=== PATIENT | female | born 1950 | race Caucasian/White ===

== ENCOUNTER → 2017-06-05 | Outpatient (CLI) | payer MEDICARE ==
--- NOTE | 2017-06-05 09:52 | CT ---
EXAMINATION TYPE: CT sinus wo con DATE OF EXAM: 06/05/2017 COMPARISON: NONE HISTORY: Cough, drainage and congestion for 5+ years CT DLP: [address] of the paranasal sinuses was performed in the axial and coronal planes. Bone and soft tissue settings are submitted. The paranasal sinuses demonstrate normal aeration and development. The paranasal sinuses are free of mucosal thickening or air fluid level. The osteal meatal units are patent bilaterally. Mild nasal septal deviation from left to right. No bony destructive changes are seen within the field of view. IMPRESSION: Mild nasal septal deviation from left to right. Otherwise unremarkable study.
== END ==
LOC: RADCTMAIN 09:01
PROVIDERS: ATTEND Internal Medicine
DX: J34.2 Deviated nasal septum (principal)
CPT/HCPCS: 70486

== ENCOUNTER 2017-06-16 12:27 | Day surgery (SDC) | payer MEDICARE ==
[2017-06-15 08:36] VITALS: BMI 27.7
[~2017-06-16 12:27] MED LIST: LACTATED RINGERS 1,000 ML IV SCH; LIDOCAINE 1% 20 ML VIAL (10MG/ML) FOR IV START INTRADERMA PRN
[2017-06-16] MEDS ORDERED: LACTATED RINGERS 1,000 ML IV ONE (12:49)
[2017-06-16] MEDS ORDERED: PROPOFOL 10 MG/ML 20 ML VIAL IV ONE (13:58)
--- NOTE | 2017-06-16 14:23 | P.PCN ---
Date of Procedure: 06/16/17 Procedure(s) Performed: Procedure: Total colonoscopy. Preoperative diagnosis: Screening for neoplasia. Postoperative diagnosis: Sigmoid diverticulosis with no evidence of acute diverticulitis, strictures, polyps or cancer. Preparation: HalfLytely prep. Sedation: Was provided by anesthesia. Brief clinical history: The patient is a 66-year-old female who is scheduled for this evaluation for screening for neoplasia age being her risk factor. There is no family history of colon cancer. The patient has no abdominal complaints, bleeding or anemia. She had a prior colonoscopy more than 10 years ago. colonoscopy. Procedure: With the patient on her left lateral decubitus position and after informed consent and adequate sedation, the perianal area was inspected and it did not show any fissures or fistulas. There were no masses felt on digital rectal examination. The Olympus CFQ 160L video colonoscope was then inserted in the rectum in the usual fashion and advanced to the cecum. There were few small diverticular orifices noted scattered in the sigmoid but there was no evidence of acute diverticulitis or strictures. The mucosa appeared healthy. No polyps or tumors were seen. I retroflexed the endoscope in the rectum before the endoscope was withdrawn. The patient tolerated the procedure well. Plan: The patient was reassured. Discussed dietary measures. She will follow- up with you as planned and I recommended repeat exam in 10 years.
[2017-06-16 15:19] VITALS: PULSE 90
[2017-06-16 15:22] VITALS: BP 128/60; RESP 18; TEMP 88
== END 2017-06-16 15:12 | disposition home or self-care (01) ==
LOC: ORWHC2ENDO 12:27
DX: Z12.11 Encounter for screening for malignant neoplasm of colon (principal); K57.30 Diverticulosis of large intestine without perforation or abscess without bleeding; E78.5 Hyperlipidemia, unspecified; E07.9 Disorder of thyroid, unspecified; Z85.3 Personal history of malignant neoplasm of breast; Z90.12 Acquired absence of left breast and nipple; Z79.82 Long term (current) use of aspirin; Z79.890 Hormone replacement therapy; Z79.899 Other long term (current) drug therapy; Z88.0 Allergy status to penicillin
CPT/HCPCS: J2704; G0121

== ENCOUNTER 2021-09-08 00:15 | Inpatient (IN) | payer MEDICARE ==
[2021-09-08] MEDS ORDERED: DILTIAZEM DRIP BOLUS FROM BAG 1 MG SOLN IV ONE ×2 (01:03→02:06)
--- NOTE | 2021-09-08 01:03 | ED ---
Arrhythmia/Palpitations HPI - General Chief Complaint: Arrhythmia/Palpitations Stated Complaint: Palpitations Time Seen by Provider: 09/08/21 00:54 Source: patient Mode of arrival: wheelchair Limitations: no limitations - History of Present Illness Initial Comments: This patient is a 70-year-old woman who presents to have evaluation of racing heart. Patient states she had been sleeping tonight and was awakened by feeling like her chest was pounding. She was not having any other symptoms. No dyspnea, diaphoresis, nausea or vomiting. She states she has previously felt like her heart would race but it would only last for a brief period of time and go away. She did just recently finished wearing a Holter monitor for number weeks to see if they can capture an event but she has not been notified of the result yet. MD Complaint: rapid heart beat -: minutes(s) Context: occurred during rest Arrhythmia History: other - Related Data Home Medications Medication Instructions Recorded Confirmed Levothyroxine Sodium [Synthroid] 112 mcg PO [id number] 06/15/17 09/08/21 Magnesium Oxide [Johnson] 500 mg PO W/SUPPER 06/15/17 09/08/21 Calcium Carbonate [Calcium] 600 mg PO W/SUPPER 09/08/21 09/08/21 Cyanocobalamin (Vitamin B-12) 1,000 mcg PO W/SUPPER 09/08/21 09/08/21 [Vitamin B-12] Ferrous Sulfate [Iron (65 MG 325 mg PO W/SUPPER 09/08/21 09/08/21 Elemental)] Loratadine [Claritin] 10 mg PO W/SUPPER 09/08/21 09/08/21 Multivitamins, Thera [Multivitamin 1 tab PO W/SUPPER 09/08/21 09/08/21 (formulary)] Pyridoxine HCl (Vitamin B6) 100 mg PO W/SUPPER 09/08/21 09/08/21 [Vitamin B-6] Turmeric Root Extract [Turmeric] 500 mg PO W/SUPPER 09/08/21 09/08/21 Previous Rx's Medication Instructions Recorded Apixaban [Eliquis] 5 mg PO BID 30 Days #60 tab 09/09/21 Propafenone [Rythmol] 150 mg PO TID #90 tab 09/09/21 Allergies Allergy/AdvReac Type Severity Reaction Status Date / Time Penicillins Allergy Anaphylaxis Verified 09/08/21 12:04 & Hives Review of Systems ROS Statement: Those systems with pertinent positive or pertinent negative responses have been documented in the HPI. ROS Other: All systems not noted in ROS Statement are negative. Constitutional: Denies: fever, chills, weakness Eyes: Denies: vision change Respiratory: Denies: cough, dyspnea Cardiovascular: Reports: palpitations. Denies: chest pain, orthopnea, edema, syncope Gastrointestinal: Denies: abdominal pain, nausea, vomiting, diarrhea Skin: Denies: rash Neurological: Denies: headache, weakness, numbness Psychiatric: Reports: anxiety Past Medical History Past Medical History: Cancer, Hyperlipidemia, Thyroid Disorder Additional Past Medical History / Comment(s): irregular heartbeat, arthritis, anti-phospholipid syndromem, hx breast cancer History of Any Multi-Drug Resistant Organisms: None Reported Past Surgical History: Breast Surgery, Cholecystectomy, Hysterectomy, Orthopedic Surgery, Tonsillectomy Additional Past Surgical History / Comment(s): left mastectomy, kandis knee replacements, RK surgery Past Anesthesia/Blood Transfusion Reactions: Postoperative Nausea & Vomiting (PONV) Past Psychological History: No Psychological Hx Reported Past Alcohol Use History: Occasional Past Drug Use History: None Reported - Past Family History Mother Family Medical History: No Reported History General Exam Limitations: no limitations General appearance: alert, in no apparent distress Head exam: Present: atraumatic, normocephalic Eye exam: Present: normal appearance. Absent: scleral icterus, conjunctival injection Neck exam: Present: normal inspection Respiratory exam: Present: normal lung sounds bilaterally. Absent: respiratory distress, wheezes, rales, rhonchi, stridor Cardiovascular Exam: Present: tachycardia, irregular rhythm, normal heart sounds. Absent: systolic murmur, diastolic murmur, rubs, gallop GI/Abdominal exam: Present: soft. Absent: distended, tenderness, guarding, rebound, rigid, mass Extremities exam: Present: normal inspection, normal capillary refill. Absent: pedal edema, calf tenderness Back exam: Present: normal inspection. Absent: CVA tenderness (R), CVA tend erness (L) Neurological exam: Present: alert Skin exam: Present: warm, dry, intact, normal color. 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 ] Respiratory 12 Rate Blood Pressure Blood Pressure 130/78 [Right Arm Sitting] O2 Sat by Pulse 98 Oximetry EKG Findings - EKG Results: EKG: interpreted by KENNETH, normal axis EKG shows: atrial fibrillation (Rate 140 bpm) Medical Decision Making - Lab Data Result diagrams: 09/09/21 07:00 09/09/21 07:00 Lab Results 09/08/21 09/08/21 09/08/21 Range/Units 00:59 00:59 00:59 WBC (3.8-10.6) k/uL RBC (3.80-5.40) m/uL Hgb (11.4-16.0) gm/dL Hct (34.0-46.0) % MCV (80.0-100.0) fL MCH (25.0-35.0) pg MCHC (31.0-37.0) g/dL RDW (11.5-15.5) % Plt Count (150-450) k/uL MPV Neutrophils % % Lymphocytes % % Monocytes % % Eosinophils % % Basophils % % Neutrophils # (1.3-7.7) k/uL Lymphocytes # (1.0-4.8) k/uL Monocytes # (0-1.0) k/uL Eosinophils # (0-0.7) k/uL Basophils # (0-0.2) k/uL PT 9.9 (9.0-12.0) sec INR 0.9 (<1.2) APTT 29.8 (22.0-30.0) sec Sodium 137 (137-145) mmol/L Potassium 4.4 (3.5-5.1) mmol/L Chloride 104 (98-107) mmol/L Carbon Dioxide 23 (22-30) mmol/L Anion Gap 10 mmol/L BUN 19 H (7-17) mg/dL Creatinine 0.80 (0.52-1.04) mg/dL Est GFR (CKD-EPI)AfAm 87 (>60 ml/min/1.73 sqM) Est GFR (CKD-EPI)NonAf 75 (>60 ml/min/1.73 sqM) Glucose 120 H (74-99) mg/dL Calcium 9.7 (8.4-10.2) mg/dL Magnesium 2.0 (1.6-2.3) mg/dL Total Bilirubin 1.0 (0.2-1.3) mg/dL AST 65 H (14-36) U/L ALT 32 (4-34) U/L Alkaline Phosphatase 55 (38-126) U/L Troponin I 0.030 (0.000-0.034) ng/mL Total Protein 7.4 (6.3-8.2) g/dL Albumin 4.7 (3.5-5.0) g/dL 09/08/21 Range/Units 00:59 WBC 6.3 (3.8-10.6) k/uL RBC 5.05 (3.80-5.40) m/uL Hgb 15.2 (11.4-16.0) gm/dL Hct 46.8 H (34.0-46.0) % MCV 92.7 (80.0-100.0) fL MCH 30.1 (25.0-35.0) pg MCHC 32.5 (31.0-37.0) g/dL RDW 13.1 (11.5-15.5) % Plt Count 238 (150-450) k/uL MPV 8.3 Neutrophils % 60 % Lymphocytes % 28 % Monocytes % 6 % Eosinophils % 4 % Basophils % 1 % Neutrophils # 3.8 (1.3-7.7) k/uL Lymphocytes # 1.7 (1.0-4.8) k/uL Monocytes # 0.4 (0-1.0) k/uL Eosinophils # 0.2 (0-0.7) k/uL Basophils # 0.0 (0-0.2) k/uL PT (9.0-12.0) sec INR (<1.2) APTT (22.0-30.0) sec Sodium (137-145) mmol/L Potassium (3.5-5.1) mmol/L Chloride (98-107) mmol/L Carbon Dioxide (22-30) mmol/L Anion Gap mmol/L BUN (7-17) mg/dL Creatinine (0.52-1.04) mg/dL Est GFR (CKD-EPI)AfAm (>60 ml/min/1.73 sqM) Est GFR (CKD-EPI)NonAf (>60 ml/min/1.73 sqM) Glucose (74-99) mg/dL Calcium (8.4-10.2) mg/dL Magnesium (1.6-2.3) mg/dL Total Bilirubin (0.2-1.3) mg/dL AST (14-36) U/L ALT (4-34) U/L Alkaline Phosphatase (38-126) U/L Troponin I (0.000-0.034) ng/mL Total Protein (6.3-8.2) g/dL Albumin (3.5-5.0) g/dL Critical Care Time Critical Care Time: Yes (30 minutes) Disposition Clinical Impression: Atrial fibrillation Disposition: ADMITTED IP TO THIS HOSP Condition: Fair Is patient prescribed a controlled substance at d/c from ED?: No
[2021-09-08] MEDS ORDERED: ENOXAPARIN 80 MG/0.8 ML SYRINGE SQ ONE (01:15)
[2021-09-08] MEDS: DILTIAZEM 125 MG in SODIUM CHLORIDE 0.9% 100 ML IV SCH (01:18)
[2021-09-08 01:50] LABS: Basophils % (A) 1 %; Eosinophils # (A) 0.2 k/uL (0-0.7); Eosinophils % (A) 4 %; HCT 46.8 % (34.0-46.0); HGB 15.2 gm/dL (11.4-16.0); Lymphocytes # (A) 1.7 k/uL (1.0-4.8); Lymphocytes % (A) 28 %; MCH 30.1 pg (25.0-35.0); MCHC 32.5 g/dL (31.0-37.0); MCV 92.7 fL (80.0-100.0); Mean Platelet Volume 8.3; Monocytes # (A) 0.4 k/uL (0-1.0); Monocytes % (A) 6 %; Neutrophils # (A) 3.8 k/uL (1.3-7.7); Neutrophils % (A) 60 %; Platelet Count 238 k/uL (150-450); RBC 5.05 m/uL (3.80-5.40); RDW 13.1 % (11.5-15.5); WBC 6.3 k/uL (3.8-10.6)
[2021-09-08 01:53] LABS: INR 0.9 (<1.2); Partial Thromboplastin Time 29.8 sec (22.0-30.0); Prothrombin Time 9.9 sec (9.0-12.0)
--- NOTE | 2021-09-08 01:53 | XR ---
EXAMINATION TYPE: XR chest 2V DATE OF EXAM: 09/08/2021 COMPARISON: NONE HISTORY: Palpitations TECHNIQUE: 2 views FINDINGS: Heart and mediastinum are normal. Lungs are clear. Diaphragm is normal. Bony thorax appears normal. IMPRESSION: Normal chest.
[2021-09-08 01:57] LABS: Calcium 9.7 mg/dL (8.4-10.2)
[2021-09-08 02:06] LABS: Albumin 4.7 g/dL (3.5-5.0); Potassium 4.4 mmol/L (3.5-5.1); Total Protein 7.4 g/dL (6.3-8.2)
[2021-09-08] MEDS ORDERED: NITROGLYCERIN SL TABS 0.4 MG TAB SUBLINGUAL PRN (03:11)
[2021-09-08] MEDS ORDERED: ENOXAPARIN 80 MG/0.8 ML SYRINGE SQ SCH (03:15)
--- NOTE | 2021-09-08 08:15 | P.HPIM ---
History of Present Illness H&P Date: 09/08/21 Alice Angelo, is a 70-year-old female who presented to [facility] emergency room with a chief complaint of palpitation and feeling her heart racing, patient stated that over the last 2 years she had 3 similar episodes each lasting about 24 hours, with several month in between episodes, she was seen by Dr. Cotter and underwent a stress test and a 30 day event monitor but was not able to document these episodes previously. She was evaluated in the emergency room vital examination on presentation revealed a temperature of 98.1 pulse 141 respiration 16 blood pressure 116/80 pulse ox 99% on room air Laboratory data revealed a white blood count of 6.3 hemoglobin 15.2 platelet count 238 sodium 137 potassium 4.4 chloride 104 CO2 23 BUN 19 creatinine 0.8 troponin level 0.03 Testing in the emergency room revealed EKG done in the emergency room revealed evidence of atrial fibrillation with rapid ventricular response, chest x-ray done in the emergency room revealed normal chest. Patient was started on IV Cardizem drip and subcu Lovenox in the emergency room, she was admitted to medical floor for further evaluation and treatment. Past medical history significant for history of hypothyroidism maintained on Synthroid, history of osteoarthritis, history of breast cancer, and previous history of palpitation in the past as above. On review of systems patient is alert and oriented 3 in no apparent distress, there is no fever or chills no headache or dizziness no chest pain no shortness of breath no cough no nausea or vomiting no abdominal pain no diarrhea no blood in the stools no burning with urination no frequency or urgency and no hematuria, there is no weakness or numbness in any of the extremities there is no change in vision speech or gait. Past Medical History Past Medical History: Cancer, Hyperlipidemia, Thyroid Disorder Additional Past Medical History / Comment(s): irregular heartbeat, arthritis, anti-phospholipid syndromem, hx breast cancer History of Any Multi-Drug Resistant Organisms: None Reported Past Surgical History: Breast Surgery, Cholecystectomy, Hysterectomy, Orthopedic Surgery, Tonsillectomy Additional Past Surgical History / Comment(s): left mastectomy, kandis knee replacements, RK surgery Past Anesthesia/Blood Transfusion Reactions: Postoperative Nausea & Vomiting (PONV) Past Psychological History: No Psychological Hx Reported Smoking Status: Never smoker Past Alcohol Use History: Occasional Past Drug Use History: None Reported - Past Family History Mother Family Medical History: No Reported History Medications and Allergies Home Medications Medication Instructions Recorded Confirmed Type Aspirin 325 mg PO DAILY 06/15/17 06/15/17 History Cholecalciferol [Vitamin D3] 5,000 unit PO DAILY 06/15/17 06/15/17 History Latanoprost Ophth [Xalatan 0.005%] 1 drops BOTH EYES HS 06/15/17 06/15/17 History Levothyroxine Sodium [Synthroid] 112 mcg PO DAILY 06/15/17 06/15/17 History Magnesium Oxide [Johnson] 500 mg PO DAILY 06/15/17 06/15/17 History Topiramate [Topamax] 100 mg PO HS 06/15/17 06/15/17 History Triple Upton 3-6-9 2 tab PO DAILY 06/15/17 06/15/17 History Allergies Allergy/AdvReac Type Severity Reaction Status Date / Time Penicillins Allergy Itching/hiv Verified 06/15/17 08:26 es Physical Exam Vitals: Vital Signs Temp Pulse Pulse Resp BP BP Pulse Ox 09/08/21 05:12 98 F 106 H 12 130/78 98 09/08/21 03:01 115 H 14 206/80 99 09/08/21 01:28 114 H 122 H 18 116/80 99 09/08/21 00:26 98.1 F 141 H 16 9 L Intake and Output 09/07/21 09/08/21 09/08/21 22:59 06:59 14:59 Other: # Voids 1 Weight 81.647 kg In general patient is alert and oriented x 3 in no distress HEENT head normocephalic and atraumatic Neck is supple no JVD no goiter no lymphadenopathy no carotid bruit Chest examination is clear to auscultation no crackles no wheezing Cardiac exam reveals irregular heart sounds S1 and S2 no gallops no murmurs Abdomen is soft nontender no organomegaly with normal bowel sounds Extremity exam reveals no edema no cyanosis or clubbing Neurological examination reveals no gross focal deficits Results CBC & Chem 7: 09/08/21 00:59 09/08/21 00:59 Labs: Abnormal Lab Results - Last 24 Hours (Table) 09/08/21 09/08/21 Range/Units 00:59 00:59 Hct 46.8 H (34.0-46.0) % BUN 19 H (7-17) mg/dL Glucose 120 H (74-99) mg/dL AST 65 H (14-36) U/L Thrombosis Risk Factor Assmnt - Choose All That Apply Any of the Below Risk Factors Present?: Yes Each Factor Represents 1 point: Obesity (BMI >25) Each Risk Factor Represents 2 Points: Age 61-74 years Other congenital or acquired thrombophilia - If yes, enter type in comment: Yes (anti-phospholipid syndrome) Thrombosis Risk Factor Assessment Total Risk Factor Score: 3 Thrombosis Risk Factor Assessment Level: Moderate Risk Assessment and Plan Plan: Atrial fibrillation with rapid ventricular response Underlying history of hypothyroidism, maintained on Synthroid 112 g daily Will check TSH Underlying history of osteoarthritis Previous history of breast cancer At this time patient is stable she is admitted to telemetry floor she is maintained on IV Cardizem and subcu Lovenox Echocardiogram ordered cardiology consultation requested Home medications reviewed For GI prophylaxis Will add protonix Will follow closely
[2021-09-08] MEDS: PROPAFENONE 150 MG TAB PO SCH ×3 (10:21→21:27)
[2021-09-08] MEDS: LEVOTHYROXINE 112 MCG TAB PO SCH (10:21)
--- NOTE | 2021-09-08 14:00 | CONS ---
CONSULTATION CHIEF COMPLAINT: Palpitations. HISTORY OF PRESENT ILLNESS: Alice is a 70-year-old lady with no significant past medical history who presented to hospital with sustained palpitations. She was found to be in atrial fibrillation with rapid ventricular rate and was started on intravenous Cardizem along with Lovenox and is admitted to the floor. The patient has had 2 prior episodes where she had sustained palpitations that were 6 months apart and this one is about 3 months after her previous episode. Following the second episode of sustained palpitations, she was evaluated in our office and had seen Dr. Cotter. She had an event monitor whose results are pending at this time. She had a stress test that she was told was negative and was told to undergo an echocardiogram down the road. At the time of my evaluation this morning, she is symptom-free. She is on intravenous Cardizem, still remains in atrial fibrillation with controlled ventricular rate. The patient's physical exam did not reveal any heart murmurs. I am going to start the patient on Rythmol 150 t.i.d., and if she does not convert to sinus rhythm, I am going to have her undergo BLAIR cardioversion in the morning. We can start her on Xarelto or Eliquis depending upon what she is covered for. PAST MEDICAL HISTORY: Negative for hypertension, diabetes or dyslipidemia. MEDICATIONS: Medications at home include: Synthroid, Topamax, and vitamin D. ALLERGIES: PENICILLIN. FAMILY HISTORY: Negative for premature coronary artery disease. SOCIAL HISTORY: Negative for smoking, EtOH abuse or drug abuse. REVIEW OF SYSTEMS: HEENT is unremarkable. Cardiac as described above. Respiratory as described above. GI negative. GENITOURINARY negative. ALLERGY/IMMUNOLOGY: None. Skin negative. Musculoskeletal significant for arthritis. Psychosocial negative. Derm negative. Constitutional negative. ONCOLOGICAL negative. LOG DECK TENDER negative. EXAM: Comfortable at rest. Vital signs are stable. There is no jugular venous distention. Carotid upstroke is normal. There is no bruit. Chest exam reveals good air entry bilaterally. Heart exam reveals first and second heart sounds. No gallop. No murmur. No rub. Abdomen is soft, nontender. Examination of extremities did not reveal any edema. Peripheral pulses are felt. LAB: Showed that the tropes are negative. TSH is normal at 2.8. Potassium is 4.4. Hemoglobin is 15.2. ASSESSMENT: Paroxysmal atrial fibrillation. PLAN: The patient will be started on Rythmol. Continue the intravenous Cardizem. Obtain a 2D echo. If she does not convert to sinus rhythm, consider BLAIR/cardioversion. GUILLAUME / DONG: [id number] /
[2021-09-08] MEDS: ENOXAPARIN 80 MG/0.8 ML SYRINGE SQ SCH (15:18)
[2021-09-08] MEDS ORDERED: PYRIDOXINE 50 MG TAB PO SCH (17:30)
[2021-09-08] MEDS ORDERED: MULTIVITAMINS, THERA 1 EACH TAB PO SCH (17:30)
[2021-09-08] MEDS ORDERED: MAGNESIUM OXIDE 400 MG TAB PO SCH (17:30)
[2021-09-08] MEDS ORDERED: LORATADINE 10 MG TAB PO SCH (17:30)
[2021-09-08] MEDS ORDERED: CALCIUM CARBONATE 500 MG CHEWABLE PO SCH (17:30)
[2021-09-08] MEDS ORDERED: ASPIRIN 325 MG TAB PO SCH (17:30)
[2021-09-08] MEDS ORDERED: FERROUS SULFATE 325 MG TAB PO SCH (17:30)
[2021-09-08] MEDS ORDERED: NON FORMULARY DRUG (Turmeric Root Extract [Turmeric] 500 MG Tablet) PO SCH (17:30)
[2021-09-08] MEDS ORDERED: CYANOCOBALAMIN 500 MCG TAB PO SCH (17:30)
[2021-09-08 23:05] VITALS: RESP 18
[2021-09-09] MEDS: ENOXAPARIN 80 MG/0.8 ML SYRINGE SQ SCH (00:14)
[2021-09-09] MEDS: DILTIAZEM 125 MG in SODIUM CHLORIDE 0.9% 100 ML IV SCH (02:28)
[2021-09-09] MEDS: LEVOTHYROXINE 112 MCG TAB PO SCH (07:07)
[2021-09-09 07:46] LABS: Basophils % (A) 0 %; Eosinophils # (A) 0.2 k/uL (0-0.7); Eosinophils % (A) 3 %; HCT 41.4 % (34.0-46.0); HGB 13.4 gm/dL (11.4-16.0); Lymphocytes # (A) 1.6 k/uL (1.0-4.8); Lymphocytes % (A) 25 %; MCH 30.4 pg (25.0-35.0); MCHC 32.4 g/dL (31.0-37.0); MCV 93.8 fL (80.0-100.0); Mean Platelet Volume 8.2; Monocytes # (A) 0.3 k/uL (0-1.0); Monocytes % (A) 5 %; Neutrophils # (A) 3.9 k/uL (1.3-7.7); Neutrophils % (A) 64 %; Platelet Count 223 k/uL (150-450); RBC 4.41 m/uL (3.80-5.40); RDW 13.2 % (11.5-15.5); WBC 6.2 k/uL (3.8-10.6)
[2021-09-09 08:10] LABS: ALT 22 U/L (4-34); AST 26 U/L (14-36); African American GFR (CKD) 78 (>60 ml/min/1.73 sqM); Albumin 3.9 g/dL (3.5-5.0); Alkaline Phosphatase 54 U/L (38-126); Blood Urea Nitrogen 15 mg/dL (7-17); Calcium 9.1 mg/dL (8.4-10.2); Carbon Dioxide 28 mmol/L (22-30); Chloride 107 mmol/L (98-107); Glucose 112 mg/dL (74-99); Non-African American GFR(CKD) 68 (>60 ml/min/1.73 sqM); Potassium 4.5 mmol/L (3.5-5.1); Total Bilirubin 0.4 mg/dL (0.2-1.3); Total Protein 6.1 g/dL (6.3-8.2)
[2021-09-09 08:23] LABS: Anion Gap 3 mmol/L; Sodium 138 mmol/L (137-145)
[2021-09-09] MEDS ORDERED: ASPIRIN 325 MG TAB PO SCH (09:00)
[2021-09-09] MEDS: PROPAFENONE 150 MG TAB PO SCH (09:52)
--- NOTE | 2021-09-09 10:18 | P.PN ---
Subjective This is a 70 year old female with a past medical history of hypothyroidism, anti-phospholipid syndrome, breast cancer s/p left mastectomy. She follows with Dr. Cotter. We are following the patient for new onset atrial fibrillation. Patient seen and examined at bedside, feeling well. No complaints. She denies any shortness of breath, palpitations, chest pain, lightheadedness or dizziness. Patient converted to sinus mechanism. EKG this morning revealed sinus rhythm heart rate 64. Meds: She is currently maintained on Lovenox 80SQ BID, aspirin 325 mg daily, Rhythmol 150mg TID GENERAL: Well-appearing, well-nourished and in no acute distress. NECK: Supple without JVD or thyromegaly. LUNGS: Breath sounds clear to auscultation bilaterally. Respiration equal and unlabored. No wheezes, rales or rhonchi. HEART: Regular rate and rhythm without murmurs, rubs or gallops. S1 and S2 heard. EXTREMITIES: Normal range of motion, no edema. No clubbing or cyanosis. Peripheral pulses intact. ASSESSMENT New onset paroxysmal atrial fibrillation [id number] score 2 History of hypothyroidism History of antiphospholipid lipid syndrome History of Breast cancer status post left mastectomy PLAN From a cardiology perspective, patient is stable to be discharged today 2D echocardiogram completed, will review Eliquis and Xarelto checked for coverage, Eliquis is the more affordable option for the patient and patient will receive a free month Continue Rhythmol 150mg TID Patient to follow up outpatient with Dr. Cotter Nurse Practitioner note has been reviewed, I agree with a documented findings and plan of care. Patient was seen and examined. Objective - Vital Signs Vital signs: Vital Signs Temp 98.4 F 09/09/21 09:35 Pulse 75 09/09/21 09:35 Resp 18 09/09/21 09:37 BP 131/78 09/09/21 09:35 Pulse Ox 96 09/09/21 09:35 FiO2 Intake & Output 09/08/21 09/09/21 09/09/21 18:59 06:59 18:59 Intake Total 1999 240 Balance 1999 240 Intake: Oral 1999 240 Other: Voiding Method Toilet Toilet Toilet # Voids 5 1 - Labs CBC & Chem 7: 09/09/21 07:00 09/09/21 07:00 Labs: Abnormal Lab Results - Last 24 Hours (Table) 09/09/21 Range/Units 07:00 Glucose 112 H (74-99) mg/dL Total Protein 6.1 L (6.3-8.2) g/dL
[2021-09-09 10:45] LABS: Chol/HDL Ratio 2.47 Ratio; LDL Cholesterol,Calculated 79.7 mg/dL (0.0-131.0)
[2021-09-09 11:51] VITALS: BP 127/76; PULSE 69; TEMP 97.8
--- NOTE | 2021-09-09 14:28 | P.DS ---
Providers Date of admission: 09/08/21 03:11 Expected date of discharge: 09/09/21 Attending physician: Yenni Bains Consults: 09/08/21 03:11 Consult Physician Routine Consulting Provider: Kirby Parsons Consult Reason/Comments: Atrial fibrillation with rapid ventricular rate, new onset Do you want consulting provider notified?: Yes Primary care physician: Yenni Bains [facility] Course: Diagnosis on discharge: Atrial fibrillation with rapid ventricular response, new diagnosis for A Fib Underlying history of hypothyroidism, maintained on Synthroid 112 g daily Will check TSH Underlying history of osteoarthritis Previous history of breast cancer Hospital course: Alice Angelo, is a 70-year-old female who presented to [facility] emergency room with a chief complaint of palpitation and feeling her heart racing, patient stated that over the last 2 years she had 3 similar episodes each lasting about 24 hours, with several month in between episodes, she was seen by Dr. Cotter and underwent a stress test and a 30 day event monitor but was not able to document these episodes previously. She was evaluated in the emergency room vital examination on presentation revealed a temperature of 98.1 pulse 141 respiration 16 blood pressure 116/80 pulse ox 99% on room air Laboratory data revealed a white blood count of 6.3 hemoglobin 15.2 platelet count 238 sodium 137 potassium 4.4 chloride 104 CO2 23 BUN 19 creatinine 0.8 troponin level 0.03 Testing in the emergency room revealed EKG done in the emergency room revealed evidence of atrial fibrillation with rapid ventricular response, chest x-ray done in the emergency room revealed normal chest. Patient was started on IV Cardizem drip and subcu Lovenox in the emergency room, she was admitted to medical floor for further evaluation and treatment. Past medical history significant for history of hypothyroidism maintained on Synthroid, history of osteoarthritis, history of breast cancer, and previous history of palpitation in the past as above. On review of systems patient is alert and oriented 3 in no apparent distress, there is no fever or chills no headache or dizziness no chest pain no shortness of breath no cough no nausea or vomiting no abdominal pain no diarrhea no blood in the stools no burning with urination no frequency or urgency and no hematuria, there is no weakness or numbness in any of the extremities there is no change in vision speech or gait. On 09/09/2021 patient was seen and examined on the telemetry floor, she is alert and oriented 3 in no apparent distress, heart rhythm has converted to normal sinus rhythm today, patient was seen by cardiology and was started on Rythmol and Eliquis, echocardiogram was done, results are still pending, patient was cleared for discharge by cardiology she will follow-up with her integration lead Dr. Cotter in the next 1-2 weeks Patient Condition at Discharge: Fair Plan - Discharge Summary New Discharge Prescriptions: New Apixaban [Eliquis] 5 mg PO BID 30 Days #60 tab Propafenone [Rythmol] 150 mg PO TID #90 tab Continue Magnesium Oxide [Johnson] 500 mg PO W/SUPPER Levothyroxine Sodium [Synthroid] 112 mcg PO AC-BRKFST Pyridoxine HCl (Vitamin B6) [Vitamin B-6] 100 mg PO W/SUPPER Cyanocobalamin (Vitamin B-12) [Vitamin B-12] 1,000 mcg PO W/SUPPER Multivitamins, Thera [Multivitamin (formulary)] 1 tab PO W/SUPPER Loratadine [Claritin] 10 mg PO W/SUPPER Ferrous Sulfate [Iron (65 MG Elemental)] 325 mg PO W/SUPPER Turmeric Root Extract [Turmeric] 500 mg PO W/SUPPER Calcium Carbonate [Calcium] 600 mg PO W/SUPPER Discontinued Aspirin 325 mg PO W/SUPPER Discharge Medication List Levothyroxine Sodium [Synthroid] 112 mcg PO AC-BRKFST 06/15/17 [History] Magnesium Oxide [Johnson] 500 mg PO W/SUPPER 06/15/17 [History] Calcium Carbonate [Calcium] 600 mg PO W/SUPPER 09/08/21 [History] Cyanocobalamin (Vitamin B-12) [Vitamin B-12] 1,000 mcg PO W/SUPPER 09/08/21 [History] Ferrous Sulfate [Iron (65 MG Elemental)] 325 mg PO W/SUPPER 09/08/21 [History] Loratadine [Claritin] 10 mg PO W/SUPPER 09/08/21 [History] Multivitamins, Thera [Multivitamin (formulary)] 1 tab PO W/SUPPER 09/08/21 [History] Pyridoxine HCl (Vitamin B6) [Vitamin B-6] 100 mg PO W/SUPPER 09/08/21 [History] Turmeric Root Extract [Turmeric] 500 mg PO W/SUPPER 09/08/21 [History] Apixaban [Eliquis] 5 mg PO BID 30 Days #60 tab 09/09/21 [Rx] Propafenone [Rythmol] 150 mg PO TID #90 tab 09/09/21 [Rx] Follow up Appointment(s)/Referral(s): Manny Cotter MD [Family Provider] - 1 Week Yenni Bains MD [Primary Care Provider] - 1-2 days Patient Instructions/Handouts: Apixaban (By mouth), A-fib (Atrial Fibrillation) (GEN) Activity/Diet/Wound Care/Special Instructions: Eliquis prescription info: First month of Eliquis will be free at the pharmacy After co pay is $90.50. Xarelto was checked as well and was around $170/month. Further recommendations and changes can be discussed in the office with Dr. Cotter.
[2021-09-09] MEDS ORDERED: APIXABAN 5 MG TAB PO SCH (21:00)
--- NOTE | 2021-09-10 09:36 | CA ---
Transthoracic Echo Report Name: Alice Angelo Age: 70 Gender: F : 1950 Exam Date: 09/09/2021 07:53 Exam Location: [facility] Ht (in): 65 Wt (lb): 180 Ordering Physician: Yenni Bains MD Attending/Referring Phys: [employer] Room Attendant Geno Mcfadden RDCS Procedure CPT: Indications: new onset a fib Cardiac Hx: Technical Quality: Fair Contrast 1: Total Dose (mL): Contrast 2: Total Dose (mL): MEASUREMENTS (Male / Female) Normal Values 2D ECHO LV Diastolic Diameter PLAX 4.0 cm 4.2 - 5.9 / 3.9 - 5.3 cm LV Systolic Diameter PLAX 3.1 cm IVS Diastolic Thickness 1.1 cm 0.6 - 1.0 / 0.6 - 0.9 cm LVPW Diastolic Thickness 1.3 cm 0.6 - 1.0 / 0.6 - 0.9 cm LV Relative Wall Thickness 0.6 RV Internal Dim ED PLAX 3.8 cm LA Systolic Diameter LX 3.7 cm 3.0 - 4.0 / 2.7 - 3.8 cm LA Volume 62.6 cm??? 18 - 58 / 22 - 52 cm??? M-MODE Aortic Root Diameter MM 2.4 cm LA Systolic Diameter MM 4.3 cm LA Ao Ratio MM 1.8 MV E Point Septal Separation 0.5 cm AV Cusp Separation MM 2.0 cm DOPPLER MV Area PHT 2.1 cm??? Mitral E Point Velocity 40.0 cm/s Mitral A Point Velocity 48.3 cm/s Mitral E to A Ratio 0.8 MV Deceleration Time 369.9 ms MV E' Velocity 5.8 cm/s Mitral E to MV E' Ratio 6.9 TR Peak Velocity 198.6 cm/s TR Peak Gradient 15.8 mmHg Right Ventricular Systolic Press 20.8 mmHg FINDINGS Left Ventricle Mildly increased left ventricular wall thickness. Normal left ventricular systolic function with no obvious regional wall motion abnormalities. Left ventricular ejection fraction is estimated at 55-60 %. Right Ventricle Mild right ventricular dilatation. Right ventricular systolic pressure within normal limits. Right Atrium Normal right atrial size. Left Atrium Mildly increased left atrial volume. Mildly increased left atrial area. Mitral Valve No mitral stenosis, regurgitation or prolapse. Aortic Valve No aortic valve stenosis or regurgitation. Tricuspid Valve Structurally normal tricuspid valve. Mild tricuspid regurgitation. Pulmonic Valve Structurally normal pulmonic valve. Trace pulmonic regurgitation. Pericardium No pericardial effusion. Aorta Normal size aortic root and proximal ascending aorta. CONCLUSIONS Normal LV size and systolic function mild right ventricular prominence. No pericardial effusion. No significant abnormality on Doppler exam Previewed by: Dr. Phil Tenorio MD (Electronically Signed) Final Date: 10 September 2021 09:35
== END 2021-09-09 14:54 | disposition home or self-care (01) | DRG 309 ==
LOC: EC 00:15 → 3SCARD 03:11
PROVIDERS: ADMIT Internal Medicine; ATTEND Internal Medicine
DX: I48.0 Paroxysmal atrial fibrillation (principal); D68.61 Antiphospholipid syndrome; E03.9 Hypothyroidism, unspecified; E78.5 Hyperlipidemia, unspecified; E66.9 Obesity, unspecified; F41.9 Anxiety disorder, unspecified; M19.90 Unspecified osteoarthritis, unspecified site; Z68.30 Body mass index [BMI] 30.0-30.9, adult; Z96.653 Presence of artificial knee joint, bilateral; Z79.890 Hormone replacement therapy; Z88.0 Allergy status to penicillin; Z79.899 Other long term (current) drug therapy; Z85.3 Personal history of malignant neoplasm of breast; Z90.12 Acquired absence of left breast and nipple
CPT/HCPCS: 36415; 71046; 80053; 80061; 83735; 84443; 84484; 85025; 85610; 85730; 93005; 93306; 96365; 96366; 96372; 99291

== ENCOUNTER → 2022-09-24 | Outpatient (CLI) | payer MEDICARE ==
--- NOTE | 2022-09-24 08:28 | MM ---
Reason for Exam: Additional evaluation requested from prior study. Last screening mammogram was performed 12 month(s) ago. Patient History: Menarche at age 13. First Full-Term at age 22. Left ovary removed at age 53. Right ovary removed at age 53. Hysterectomy at age 53. Postmenopausal. Patient has history of breast feeding. Breast cancer, left, age 48. Breast cancer, left, age 55. 2002, Mastectomy on the Left side. Tissue Density: Right: There are scattered fibroglandular densities. Findings: Analyzed By CAD. Benign vascular calcifications redemonstrated upper outer quadrant. No significant change from prior exams. Overall Assessment: Negative, BI-RAD 1 Management: Screening Mammogram of the right breast in 1 year. . Results were given to the patient verbally at the time of exam. Patient should continue monthly self-breast exams. A clinical breast exam by your physician is recommended on an annual basis. This exam should not preclude additional follow-up of suspicious palpable abnormalities. Electronically signed and approved by: Marina Campbell M.D. Radiologist
== END | disposition home or self-care (01) ==
LOC: RADMAMWWP 07:41
PROVIDERS: ATTEND Internal Medicine Hematology & Oncology
DX: C50.912 Malignant neoplasm of unspecified site of left female breast (principal); Z78.0 Asymptomatic menopausal state
CPT/HCPCS: 77065; G0279; 77061

== ENCOUNTER → 2022-11-05 | Outpatient (CLI) | payer MEDICARE ==
--- NOTE | 2022-11-05 22:23 | US ---
EXAMINATION TYPE: US abdomen complete DATE OF EXAM: 11/05/2022 COMPARISON: NONE CLINICAL INDICATION: Female, 72 years old with history of R10.84 ABD PAIN; Epigastric pain x 1 year TECHNIQUE: Multiple sonographic images of the abdomen are obtained. FINDINGS: EXAM MEASUREMENTS: Liver Length: 16.0 cm CBD: 0.52 cm Spleen: 9.9 x 4.5 cm Right Kidney: 10.3 x 4.7 x 4.9 cm Left Kidney: 10.8 x 4.8 x 4.3 cm DITCH DIGGER NOTES: Pancreas: Tail obscured by overlying bowel gas Liver: wnl Gallbladder: Surgically absent CBD: wnl Spleen: wnl Right Kidney: wnl Left Kidney: wnl Upper IVC: wnl Abd Aorta: wnl IMPRESSION: 1. Normal abdomen ultrasound.
== END | disposition home or self-care (01) ==
LOC: RADUSWWP 07:36
PROVIDERS: ATTEND Internal Medicine
DX: R10.84 Generalized abdominal pain (principal)
CPT/HCPCS: 76700

== ENCOUNTER 2023-01-11 17:25 | Observation (INO) | payer MEDICARE ==
[2023-01-11] MEDS ORDERED: SODIUM CHLORIDE 0.9% 1,000 ML IV STA (17:50)
[2023-01-11] MEDS ORDERED: ASPIRIN 81 MG PO STA (17:50)
[2023-01-11] MEDS ORDERED: DILTIAZEM 125 MG in SODIUM CHLORIDE 0.9% 100 ML IV SCH ×2 (18:15→19:45)
[2023-01-11 18:31] LABS: Basophils % (A) 0 %; Eosinophils # (A) 0.2 k/uL (0-0.7); Eosinophils % (A) 4 %; HCT 43.8 % (34.0-46.0); HGB 15.5 gm/dL (11.4-16.0); Lymphocytes # (A) 1.4 k/uL (1.0-4.8); Lymphocytes % (A) 20 %; MCH 31.9 pg (25.0-35.0); MCHC 35.4 g/dL (31.0-37.0); MCV 89.9 fL (80.0-100.0); Mean Platelet Volume 8.2; Monocytes # (A) 0.4 k/uL (0-1.0); Monocytes % (A) 6 %; Neutrophils # (A) 4.7 k/uL (1.3-7.7); Neutrophils % (A) 68 %; Platelet Count 243 k/uL (150-450); RBC 4.88 m/uL (3.80-5.40); RDW 13.2 % (11.5-15.5)
[2023-01-11 18:40] LABS: INR 0.9 (<1.2); Partial Thromboplastin Time 33.6 sec (22.0-30.0)
[2023-01-11 18:49] LABS: ALT 22 U/L (4-34); AST 29 U/L (14-36); African American GFR (CKD) 83 (>60 ml/min/1.73 sqM); Albumin 4.5 g/dL (3.5-5.0); Alkaline Phosphatase 58 U/L (38-126); Anion Gap 12 mmol/L; Blood Urea Nitrogen 21 mg/dL (7-17); Calcium 9.8 mg/dL (8.4-10.2); Carbon Dioxide 20 mmol/L (22-30); Chloride 106 mmol/L (98-107); Glucose 105 mg/dL (74-99); Magnesium 2.1 mg/dL (1.6-2.3); Non-African American GFR(CKD) 72 (>60 ml/min/1.73 sqM); Potassium 3.6 mmol/L (3.5-5.1); Sodium 138 mmol/L (137-145); Total Bilirubin 0.4 mg/dL (0.2-1.3); Total Protein 6.9 g/dL (6.3-8.2)
--- NOTE | 2023-01-11 18:52 | XR ---
EXAMINATION TYPE: XR chest 2V DATE OF EXAM: 01/11/2023 6:45 PM CLINICAL INDICATION:Female, 72 years old with history of dysrhythmia; [facility] COMPARISON: Chest radiographs from 09/08/2021. TECHNIQUE: XR chest 2V Frontal and lateral views of the chest. FINDINGS: Lungs/Pleura: There is flattening of the diaphragm with increased lucency of the lungs. No evidence o f pneumothorax, pleural effusion or focal consolidation. Pulmonary vascularity: Unremarkable. Heart/mediastinum: Cardiomediastinal silhouette is unremarkable. Musculoskeletal: No acute osseous pathology. Other findings: None IMPRESSION: 1. No acute cardiopulmonary disease process. 2. COPD changes.
[2023-01-11] MEDS ORDERED: NALOXONE 0.4 MG/ML 1 ML VIAL IV PRN (19:52)
--- NOTE | 2023-01-11 19:52 | ED ---
General Adult HPI - General Chief complaint: Arrhythmia/Palpitations Stated complaint: Afib Time Seen by Provider: 01/11/23 17:41 Source: patient, RN notes reviewed, old records reviewed Mode of arrival: ambulatory Limitations: no limitations - History of Present Illness Initial comments: Patient is a 72-year-old female who presents here to Department complaining of palpitations patient states the palpitations began earlier today. Has a history of atrial fibrillation that is usually rhythm controlled so that she is in normal sinus rhythm with her medications. It is on blood thinners. Denies any chest pain, shortness of breath. Denies any abdominal pain, nausea, vomiting. No other acute complaints per no fevers. No other acute complaints. Presents for further evaluation states she is not usually an atrial fibrillation. - Related Data Home Medications Medication Instructions Recorded Confirmed Calcium Carbonate [Calcium] 2,400 mg PO W/SUPPER 09/08/21 01/11/23 Multivitamins, Thera [Multivitamin 1 tab PO W/SUPPER 09/08/21 01/11/23 (formulary)] Pyridoxine HCl (Vitamin B6) 200 mg PO W/SUPPER 09/08/21 01/11/23 [Vitamin B-6] Turmeric Root Extract [Turmeric] 500 mg PO W/SUPPER 09/08/21 01/11/23 Aspirin EC [Ecotrin Low Dose] 81 mg PO W/SUPPER 01/11/23 01/11/23 Cholecalciferol [Vitamin D3 (125 125 mcg PO W/SUPPER 01/11/23 01/11/23 Mcg = 5000 Iu)] Levothyroxine Sodium [Synthroid] 137 mcg PO DAILY 01/11/23 01/11/23 Magnesium Oxide [Mag-Ox] 400 mg PO W/SUPPER 01/11/23 01/11/23 Previous Rx's Medication Instructions Recorded Apixaban [Eliquis] 5 mg PO BID 30 Days #60 tab 09/09/21 Propafenone [Rythmol] 150 mg PO TID #90 tab 09/09/21 Allergies Allergy/AdvReac Type Severity Reaction Status Date / Time Penicillins Allergy Anaphylaxis Verified 01/11/23 20:01 & Hives Review of Systems ROS Statement: Those systems with pertinent positive or pertinent negative responses have been documented in the HPI. Review of Systems: CONST: Denies fever EYES: Denies blurry vision ENT: Denies nasal congestion C/V: Endorses palpitations RESP: Denies shortness of breath GI: Denies abdominal pain : Denies dysuria SKIN: Denies rash. MSK: Denies joint pain. NEURO: Denies headache ROS Other: All systems not noted in ROS Statement are negative. Past Medical History Past Medical History: Atrial Fibrillation, Cancer, Hyperlipidemia, Thyroid Disorder Additional Past Medical History / Comment(s): irregular heartbeat, arthritis, anti-phospholipid syndromem, hx breast cancer History of Any Multi-Drug Resistant Organisms: None Reported Past Surgical History: Breast Surgery, Cholecystectomy, Hysterectomy, Orthopedic Surgery, Tonsillectomy Additional Past Surgical History / Comment(s): left mastectomy, kandis knee replacements, RK surgery Past Anesthesia/Blood Transfusion Reactions: Postoperative Nausea & Vomiting (PONV) Past Psychological History: No Psychological Hx Reported Smoking Status: Never smoker Past Alcohol Use History: Occasional Past Drug Use History: None Reported - Past Family History Mother Family Medical History: No Reported History General Exam - General Exam Comments Initial Comments: General: Appears in no acute distress. HEAD: Normal with no signs of head trauma. EYES: PERRLA, EOMI, conjunctiva normal, no discharge. ENT: Hearing grossly intact, normal oropharynx. RESPIRATORY: Clear breath sounds bilaterally. No wheezes, rales, or rhonchi. C/V: Irregular rate and rhythm.. S1 and S2 auscultated, no edema, peripheral pulses 2+ and intact throughout ABD: Abd is soft, nontender, nondistended EXT: Normal range of motion, no obvious deformity SKIN: No rashes or lesions observed on exposed skin. NEURO: Alert and oriented 4. Limitations: no limitations Course Vital Signs 01/11/23 01/11/23 01/11/23 17:26 18:23 20:00 Temperature 98.6 F 98.1 F Pulse Rate 137 H 120 H 116 H Respiratory 20 18 18 Rate Blood Pressure 148/88 126/84 118/81 O2 Sat by Pulse 96 96 96 Oximetry Medical Decision Making - Medical Decision Making Was pt. sent in by a medical professional or institution (, PA, BOAT PIL[employer], urgent care, hospital, or skilled nursing...) When possible be specific @ -No Did you speak to anyone other than the patient for history (EMS, parent, family, police, friend...)? What history was obtained from this source @ -No Did you review nursing and triage notes (agree or disagree)? Why? @ -I reviewed and agree with nursing and triage notes Were old charts reviewed (outside hosp., previous admission, EMS record, old EKG, old radiological studies, urgent care reports/EKG's, skilled nursing records)? Report findings @ -Old charts reviewed. Differential Diagnosis (chest pain, altered mental status, abdominal pain women, abdominal pain men, vaginal bleeding, weakness, fever, dyspnea, syncope, headache, dizziness, GI bleed, back pain, seizure, CVA, palpatations, mental health, musculoskeletal)? @ -Differential Palpitations Ventricular arrhythmias, atrial arrhythmias, myocardial infarction, anemia, thyrotoxicosis, electrolyte imbalance, hypokalemia, pulmonary embolism, pulmonary disease, drugs, alcohol, anxiety, stress.... This is not meant to be an all-inclusive list. EKG interpreted by me (3pts min.). @ -As above X-rays interpreted by me (1pt min.). @ -Chest x-ray reveals no obvious acute cardio pulmonary process. CT interpreted by me (1pt min.). @ -None done U/S interpreted by me (1pt. min.). @ -None done What testing was considered but not performed or refused? (CT, X-rays, U/S, labs)? Why? @ -None What meds were considered but not given or refused? Why? @ -None Did you discuss the management of the patient with other professionals (professionals i.e. , PA, [employer] P[employer], lab, RT, psych nurse, psychologist social, plush weaver, teacher, antisubmarine weapons officer, case manager specialist)? Give summary @ -Discussed with the patient's PCP Dr. Bains who accepted the admission. Was smoking cessation discussed for >3mins.? @ -No Was critical care preformed (if so, how long)? @ -No Were there social determinants of health that impacted care today? How? (Homelessness, low income, unemployed, alcoholism, drug addiction, transportation, low edu. Level, literacy, decrease access to med. care, penitentiary, rehab)? @ -No Was there de-escalation of care discussed even if they declined (Discuss DNR or withdrawal of care, Hospice)? DNR status @ -No What co-morbidities impacted this encounter? (DM, HTN, Smoking, COPD, CAD, Cancer, CVA, ARF, Chemo, Hep., AIDS, mental health diagnosis, sleep apnea, morbid obesity)? @ -None Was patient admitted / discharged? Hospital course, mention meds given and route, prescriptions, significant lab abnormalities, going to OR and other pertinent info. @ -Based on the patient's presentation and physical exam, I'm concerned for breakthrough atrial fibrillation with RVR. Heart rates anywhere from 110 bpm to 140 bpm. Patient has a history of atrial fibrillation but usually rhythm controlled. She has not missed any doses of her meds. Therefore we will obtain a cardiopulmonary workup labs, chest x-ray, EKG. Patient agreement this plan. We'll start with 1 L fluid bolus and then started the patient likely on a low- level Cardizem drip. She was in agreement this plan. She'll be given an aspirin. EKG shows A. fib with RVR. Patient's labs remarkable for an indeterminate troponin of 0.02. TSH slightly elevated 5.4. Remainder of the labs within acceptable limits. Chest x-ray unremarkable. I discussed the results with the patient. On Cardizem drip, heart rates are controlled below 115 on average. Remains symptomatically stable otherwise. Patient will be admitted at this time. She was in agreement this plan. We will continue her home anticoagulation. I spoke with the admitting physician, Dr. Dr. Bains who accepted the patient. Cardiology consulted. Undiagnosed new problem with uncertain prognosis? @ -No Drug Therapy requiring intensive monitoring for toxicity (Heparin, Nitro, Insulin, Cardizem)? @ -Cardizem Were any procedures done? @ -No Diagnosis/symptom? @ -Breakthrough atrial fibrillation with RVR Acute, or Chronic, or Acute on Chronic? @ -Acute Uncomplicated (without systemic symptoms) or Complicated (systemic symptoms)? @ -Complicated Side effects of treatment? @ -No Exacerbation, Progression, or Severe Exacerbation? @ -No Poses a threat to life or bodily function? How? (Chest pain, USA, VT, pneumonia, PE, COPD, DKA, ARF, appy, cholecystitis, CVA, Diverticulitis, Homicidal, Suicidal, threat to staff... and all critical care pts) @ -Yes - Lab Data Result diagrams: 01/11/23 18:21 01/11/23 18:21 Lab Results 01/11/23 01/11/23 01/11/23 Range/Units 18:21 18:21 18:21 WBC 7.0 (3.8-10.6) k/uL RBC 4.88 (3.80-5.40) m/uL Hgb 15.5 (11.4-16.0) gm/dL Hct 43.8 (34.0-46.0) % MCV 89.9 (80.0-100.0) fL MCH 31.9 (25.0-35.0) pg MCHC 35.4 (31.0-37.0) g/dL RDW 13.2 (11.5-15.5) % Plt Count 243 (150-450) k/uL MPV 8.2 Neutrophils % 68 % Lymphocytes % 20 % Monocytes % 6 % Eosinophils % 4 % Basophils % 0 % Neutrophils # 4.7 (1.3-7.7) k/uL Lymphocytes # 1.4 (1.0-4.8) k/uL Monocytes # 0.4 (0-1.0) k/uL Eosinophils # 0.2 (0-0.7) k/uL Basophils # 0.0 (0-0.2) k/uL PT 10.0 (10.0-12.5) sec INR 0.9 (<1.2) APTT 33.6 H (22.0-30.0) sec Sodium 138 (137-145) mmol/L Potassium 3.6 (3.5-5.1) mmol/L Chloride 106 (98-107) mmol/L Carbon Dioxide 20 L (22-30) mmol/L Anion Gap 12 mmol/L BUN 21 H (7-17) mg/dL Creatinine 0.82 (0.52-1.04) mg/dL Est GFR (CKD-EPI)AfAm 83 (>60 ml/min/1.73 sqM) Est GFR (CKD-EPI)NonAf 72 (>60 ml/min/1.73 sqM) Glucose 105 H (74-99) mg/dL Calcium 9.8 (8.4-10.2) mg/dL Magnesium 2.1 (1.6-2.3) mg/dL Total Bilirubin 0.4 (0.2-1.3) mg/dL AST 29 (14-36) U/L ALT 22 (4-34) U/L Alkaline Phosphatase 58 (38-126) U/L Troponin I (0.000-0.034) ng/mL Total Protein 6.9 (6.3-8.2) g/dL Albumin 4.5 (3.5-5.0) g/dL TSH 5.480 H (0.465-4.680) mIU/L Influenza Type A (PCR) (Not Detectd) Influenza Type B (PCR) (Not Detectd) RSV (PCR) (Not Detectd) SARS-CoV-2 (PCR) (Not Detectd) 01/11/23 01/11/23 Range/Units 18:21 18:21 WBC (3.8-10.6) k/uL RBC (3.80-5.40) m/uL Hgb (11.4-16.0) gm/dL Hct (34.0-46.0) % MCV (80.0-100.0) fL MCH (25.0-35.0) pg MCHC (31.0-37.0) g/dL RDW (11.5-15.5) % Plt Count (150-450) k/uL MPV Neutrophils % % Lymphocytes % % Monocytes % % Eosinophils % % Basophils % % Neutrophils # (1.3-7.7) k/uL Lymphocytes # (1.0-4.8) k/uL Monocytes # (0-1.0) k/uL Eosinophils # (0-0.7) k/uL Basophils # (0-0.2) k/uL PT (10.0-12.5) sec INR (<1.2) APTT (22.0-30.0) sec Sodium (137-145) mmol/L Potassium (3.5-5.1) mmol/L Chloride (98-107) mmol/L Carbon Dioxide (22-30) mmol/L Anion Gap mmol/L BUN (7-17) mg/dL Creatinine (0.52-1.04) mg/dL Est GFR (CKD-EPI)AfAm (>60 ml/min/1.73 sqM) Est GFR (CKD-EPI)NonAf (>60 ml/min/1.73 sqM) Glucose (74-99) mg/dL Calcium (8.4-10.2) mg/dL Magnesium (1.6-2.3) mg/dL Total Bilirubin (0.2-1.3) mg/dL AST (14-36) U/L ALT (4-34) U/L Alkaline Phosphatase (38-126) U/L Troponin I 0.020 (0.000-0.034) ng/mL Total Protein (6.3-8.2) g/dL Albumin (3.5-5.0) g/dL TSH (0.465-4.680) mIU/L Influenza Type A (PCR) Not Detected (Not Detectd) Influenza Type B (PCR) Not Detected (Not Detectd) RSV (PCR) Not Detected (Not Detectd) SARS-CoV-2 (PCR) Not Detected (Not Detectd) - EKG Data -: EKG Interpreted by Me EKG Comments: 12-lead Electrocardiogram Interpretation Note EKG was reviewed and interpreted by myself. 12-lead ECG performed at 1741 is interpreted by me as revealing atrial fibrillation/flutter with RVR at a rate of 116 beats per minute. Emmett is normal. QRS durations 117 ms, QTc is 388 ms.. There were no ST or T wave abnormalities to suggest myocardial ischemia or injury. R wave progression across the precordium was satisfactory. By my interp retation this EKG is non-diagnostic for acute ischemia. Disposition Clinical Impression: Atrial fibrillation with RVR Disposition: ADMITTED IP TO THIS HOSP Condition: Stable Referrals: Yenni Bains MD [Primary Care Provider] - 1-2 days Time of Disposition: 19:41
[2023-01-11] MEDS: APIXABAN 5 MG TAB PO SCH (20:05)
[2023-01-11] MEDS: PROPAFENONE 150 MG TAB PO SCH ×2 (20:54→20:55)
[2023-01-12] MEDS ORDERED: LEVOTHYROXINE 137 MCG TAB PO SCH (06:30)
[2023-01-12 08:51] LABS: Basophils % (A) 0 %; Eosinophils # (A) 0.2 k/uL (0-0.7); Eosinophils % (A) 4 %; HCT 40.2 % (34.0-46.0); HGB 13.3 gm/dL (11.4-16.0); Lymphocytes # (A) 1.3 k/uL (1.0-4.8); Lymphocytes % (A) 23 %; MCH 30.8 pg (25.0-35.0); MCHC 33.2 g/dL (31.0-37.0); MCV 92.7 fL (80.0-100.0); Mean Platelet Volume 9.5; Monocytes # (A) 0.4 k/uL (0-1.0); Monocytes % (A) 6 %; Neutrophils # (A) 3.6 k/uL (1.3-7.7); Neutrophils % (A) 64 %; Platelet Count 215 k/uL (150-450); RBC 4.33 m/uL (3.80-5.40); RDW 13.4 % (11.5-15.5); WBC 5.6 k/uL (3.8-10.6)
[2023-01-12 09:08] LABS: Sodium 137 mmol/L (137-145)
[2023-01-12 09:09] LABS: African American GFR (CKD) 82 (>60 ml/min/1.73 sqM); Anion Gap 10 mmol/L; Blood Urea Nitrogen 18 mg/dL (7-17); Carbon Dioxide 24 mmol/L (22-30); Chloride 103 mmol/L (98-107); Glucose 91 mg/dL (74-99); Non-African American GFR(CKD) 71 (>60 ml/min/1.73 sqM); Potassium 4.2 mmol/L (3.5-5.1)
[2023-01-12] MEDS: APIXABAN 5 MG TAB PO SCH (09:16)
[2023-01-12] MEDS: PROPAFENONE 150 MG TAB PO SCH ×2 (09:17→16:26)
--- NOTE | 2023-01-12 10:05 | CONS ---
CONSULTATION CHIEF COMPLAINT: Palpitations. HISTORY OF PRESENT ILLNESS: Alice is a 72-year-old lady with history of paroxysmal atrial fibrillation who presented to hospital with sudden-onset palpitations. She was found to be in atrial fibrillation with poorly controlled ventricular rate, was started on intravenous Cardizem, following which she converted to sinus rhythm and at the time of my evaluation she is in sinus rhythm with controlled ventricular rate. The patient's admission EKG showed atypical atrial flutter. The patient is currently on Rythmol 150 t.i.d. along with Eliquis and has not missed any of her medications. The last echocardiogram on her was in August of 2021, that revealed normal LV systolic function without significant valvular heart disease. She has not had any of the workup since that time. PAST MEDICAL HISTORY: Significant for paroxysmal atrial fibrillation. CURRENT MEDICATIONS: Include, 1. Rythmol 150 t.i.d. 2. Aspirin 81 mg daily. 3. Eliquis 5 b.i.d. 4. Vitamin D. 5. Synthroid. ALLERGIES: To penicillin. FAMILY HISTORY: Negative for premature coronary artery disease. SOCIAL HISTORY: Negative for smoking, EtOH abuse or drug abuse. REVIEW OF SYSTEMS: A review of systems has been performed. Pertinents are as documented. PHYSICAL EXAMINATION: GENERAL: Comfortable at rest. VITAL SIGNS: Heart rate is 60 beats per minute. Blood pressure 130/72, respiratory rate is 16, O2 saturation is 95%. NECK: There is no jugular venous distention. Carotid upstroke is normal. There is no bruit. CHEST: Reveals good air entry bilaterally. HEART: Reveals first and second heart sounds. No gallop. No murmur. ABDOMEN: Soft, nontender. EXTREMITIES: Exam of extremities did not reveal any edema. Peripheral pulses are felt. LABORATORY DATA: Labs show a hemoglobin of 15.5, platelet count is 243. Potassium is 3.6, creatinine is 0.8. Three sets of troponins are negative. TSH is 5.4. ASSESSMENT: Paroxysmal atrial fibrillation. PLAN: Resume Eliquis, Rythmol, stop the aspirin. Obtain a 2D echo and the patient is stable for discharge after the echo is done from cardiac standpoint. MMODL / IJN: [id number] /
[2023-01-12] MEDS ORDERED: MAGNESIUM OXIDE 400 MG TAB PO SCH (17:30)
[2023-01-12] MEDS ORDERED: ASPIRIN 81 MG PO SCH (17:30)
[2023-01-12] MEDS ORDERED: CHOLECALCIFEROL 125 MCG (5000 IU) TABLET PO SCH (17:30)
[2023-01-12] MEDS ORDERED: PYRIDOXINE 50 MG TAB PO SCH (17:30)
[2023-01-12] MEDS ORDERED: MULTIVITAMINS, THERA 1 EACH TAB PO SCH (17:30)
[2023-01-12] MEDS ORDERED: CALCIUM CARBONATE 500 MG CHEWABLE PO SCH (17:30)
[2023-01-12 18:48] VITALS: BP 127/68; PULSE 61; RESP 18; TEMP 98.7
--- NOTE | 2023-01-13 16:02 | P.HPIM ---
History of Present Illness H&P Date: 01/12/23 Alice Angelo, is a 72-year-old female who presented to [facility] emergency room with a chief complaint of palpitation, patient has a known history of paroxysmal atrial fibrillation, she was feeling well in normal sinus rhythm until earlier this morning when she started having palpitation with fast heart rhythm, this lasted more than 10 minutes and patient decided to come to emergency room. She was evaluated in the emergency room vital examination on presentation revealed a temperature of 98.6 pulse 137 respiration 20 blood pressure 148/88 pulse ox 96% on room air Laboratory data revealed a white blood count of 7.0 hemoglobin 15.5 platelet count 243 sodium 138 potassium 3.6 chloride 106 CO2 20 BUN 21 creatinine 0.8 troponin 0.02 TSH 5.48 Testing in the emergency room revealed EKG revealed atrial flutter with rapid ventricular response, chest x-ray did not reveal any acute abnormality Patient was admitted to medical floor for further evaluation and treatment Past Medical History Past Medical History: Atrial Fibrillation, Cancer, Hyperlipidemia, Thyroid Disorder Additional Past Medical History / Comment(s): irregular heartbeat, arthritis, anti-phospholipid syndromem, hx breast cancer History of Any Multi-Drug Resistant Organisms: None Reported Past Surgical History: Breast Surgery, Cholecystectomy, Hysterectomy, Orthopedic Surgery, Tonsillectomy Additional Past Surgical History / Comment(s): left mastectomy, kandis knee rep lacements, RK surgery Past Anesthesia/Blood Transfusion Reactions: Postoperative Nausea & Vomiting (PONV) Past Psychological History: No Psychological Hx Reported Smoking Status: Never smoker Past Alcohol Use History: Occasional Past Drug Use History: None Reported - Past Family History Mother Family Medical History: No Reported History Medications and Allergies Home Medications Medication Instructions Recorded Confirmed Type Calcium Carbonate [Calcium] 2,400 mg PO W/SUPPER 09/08/21 01/11/23 History Multivitamins, Thera [Multivitamin 1 tab PO W/SUPPER 09/08/21 01/11/23 History (formulary)] Pyridoxine HCl (Vitamin B6) 200 mg PO W/SUPPER 09/08/21 01/11/23 History [Vitamin B-6] Turmeric Root Extract [Turmeric] 500 mg PO W/SUPPER 09/08/21 01/11/23 History Apixaban [Eliquis] 5 mg PO BID 30 Days #60 tab 09/09/21 01/11/23 Rx Propafenone [Rythmol] 150 mg PO TID #90 tab 09/09/21 01/11/23 Rx Aspirin EC [Ecotrin Low Dose] 81 mg PO W/SUPPER 01/11/23 01/11/23 History Cholecalciferol [Vitamin D3 (125 125 mcg PO W/SUPPER 01/11/23 01/11/23 History Mcg = 5000 Iu)] Levothyroxine Sodium [Synthroid] 137 mcg PO DAILY 01/11/23 01/11/23 History Magnesium Oxide [Mag-Ox] 400 mg PO W/SUPPER 01/11/23 01/11/23 History Allergies Allergy/AdvReac Type Severity Reaction Status Date / Time Penicillins Allergy Anaphylaxis Verified 01/11/23 20:01 & Hives Physical Exam Vitals: Vital Signs Temp Pulse Resp BP Pulse Ox 01/12/23 12:00 57 L 16 125/67 01/12/23 10:00 69 16 128/72 01/12/23 08:00 60 16 112/71 01/12/23 04:00 57 L 16 130/76 95 01/12/23 02:00 64 18 119/67 97 01/12/23 00:00 60 18 117/67 97 01/11/23 22:00 73 16 115/69 96 01/11/23 21:25 67 01/11/23 20:00 116 H 18 118/81 96 01/11/23 18:23 98.1 F 120 H 18 126/84 96 01/11/23 17:26 98.6 F 137 H 20 148/88 96 In general patient is alert and oriented x3 in no distress HEENT head normocephalic and atraumatic Neck is supple no JVD no goiter no lymphadenopathy no carotid bruit Chest examination is clear to auscultation no crackles no wheezing Cardiac exam reveals irregular heart sounds, with tachycardia S1 and S2 no gallops no murmurs Abdomen is soft nontender no organomegaly with normal bowel sounds Extremity exam reveals no edema no cyanosis or clubbing Neurological examination reveals no gross focal deficits Results CBC & Chem 7: 01/12/23 07:09 01/12/23 07:09 Labs: Abnormal Lab Results - Last 24 Hours (Table) 11/26/23 11/26/23 11/27/23 Range/Units 18:21 18:21 07:09 APTT 33.6 H (22.0-30.0) sec Carbon Dioxide 20 L (22-30) mmol/L BUN 21 H 18 H (7-17) mg/dL Glucose 105 H (74-99) mg/dL TSH 5.480 H (0.465-4.680) mIU/L Assessment and Plan Plan: Atrial flutter with rapid ventricular response Known history of atrial fibrillation, paroxysmal, maintained on Eliquis Underlying history of hypothyroidism Underlying history of osteoarthritis Previous history of breast cancer At this time patient will be admitted to telemetry floor She was started on IV Cardizem drip in the emergency room Home medications reviewed and reordered Echocardiogram ordered Cardiology consultation requested Will follow closely
--- NOTE | 2023-01-13 16:04 | P.DS ---
Providers Date of admission: 01/11/23 19:52 Expected date of discharge: 01/13/23 Attending physician: Yenni Bains Consults: 01/11/23 19:52 Consult Physician Routine Consulting Provider: [facility] Consult Reason/Comments: breakthrough afib wtih rvr Do you want consulting provider notified?: Yes Primary care physician: Yenni Herson [facility] Course: Diagnosis on discharge: Atrial flutter with rapid ventricular response Known history of atrial fibrillation, paroxysmal, maintained on Eliquis Underlying history of hypothyroidism Underlying history of osteoarthritis Previous history of breast cancer Hospital course: Alice Angelo, is a 72-year-old female who presented to [facility] emergency room with a chief complaint of palpitation, patient has a known history of paroxysmal atrial fibrillation, she was feeling well in normal sinus rhythm until earlier this morning when she started having palpitation with fast heart rhythm, this lasted more than 10 minutes and patient decided to come to emergency room. She was evaluated in the emergency room vital examination on presentation revealed a temperature of 98.6 pulse 137 respiration 20 blood pressure 148/88 pulse ox 96% on room air Laboratory data revealed a white blood count of 7.0 hemoglobin 15.5 platelet count 243 sodium 138 potassium 3.6 chloride 106 CO2 20 BUN 21 creatinine 0.8 troponin 0.02 TSH 5.48 Testing in the emergency room revealed EKG revealed atrial flutter with rapid ventricular response, chest x-ray did not reveal any acute abnormality Patient was admitted to medical floor for further evaluation and treatment On 01/12/2023 patient was seen and examined on the telemetry floor, she is alert and oriented 3 in no apparent distress, she regained normal sinus rhythm on Cardizem drip, she was evaluated by cardiology Dr. 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 Cotter in 1-2 weeks Patient Condition at Discharge: Stable Plan - Discharge Summary New Discharge Prescriptions: Continue Pyridoxine HCl (Vitamin B6) [Vitamin B-6] 200 mg PO W/SUPPER Cholecalciferol [Vitamin D3 (125 Mcg = 5000 Iu)] 125 mcg PO W/SUPPER Levothyroxine Sodium [Synthroid] 137 mcg PO DAILY Aspirin EC [Ecotrin Low Dose] 81 mg PO W/SUPPER Multivitamins, Thera [Multivitamin (formulary)] 1 tab PO W/SUPPER Turmeric Root Extract [Turmeric] 500 mg PO W/SUPPER Calcium Carbonate [Calcium] 2,400 mg PO W/SUPPER Apixaban [Eliquis] 5 mg PO BID 30 Days #60 tab Propafenone [Rythmol] 150 mg PO TID #90 tab Magnesium Oxide [Mag-Ox] 400 mg PO W/SUPPER Discharge Medication List Calcium Carbonate [Calcium] 2,400 mg PO W/SUPPER 09/08/21 [History] Multivitamins, Thera [Multivitamin (formulary)] 1 tab PO W/SUPPER 09/08/21 [History] Pyridoxine HCl (Vitamin B6) [Vitamin B-6] 200 mg PO W/SUPPER 09/08/21 [History] Turmeric Root Extract [Turmeric] 500 mg PO W/SUPPER 09/08/21 [History] Apixaban [Eliquis] 5 mg PO BID 30 Days #60 tab 09/09/21 [Rx] Propafenone [Rythmol] 150 mg PO TID #90 tab 09/09/21 [Rx] Aspirin EC [Ecotrin Low Dose] 81 mg PO W/SUPPER 01/11/23 [History] Cholecalciferol [Vitamin D3 (125 Mcg = 5000 Iu)] 125 mcg PO W/SUPPER 01/11/23 [History] Levothyroxine Sodium [Synthroid] 137 mcg PO DAILY 01/11/23 [History] Magnesium Oxide [Mag-Ox] 400 mg PO W/SUPPER 01/11/23 [History] Follow up Appointment(s)/Referral(s): Yenni Bains MD [Primary Care Provider] - 1-2 days Discharge Disposition: HOME SELF-CARE
== END 2023-01-12 16:50 | disposition home or self-care (01) ==
LOC: EC 17:25 → 3SCARD 19:52 → 6NMEDSUR 01-12 09:45
PROVIDERS: ADMIT Internal Medicine; ATTEND Internal Medicine
DX: I48.4 Atypical atrial flutter (principal); I48.0 Paroxysmal atrial fibrillation; E03.9 Hypothyroidism, unspecified; M19.90 Unspecified osteoarthritis, unspecified site; E78.5 Hyperlipidemia, unspecified; D68.61 Antiphospholipid syndrome; Z11.52 Encounter for screening for COVID-19; Z79.890 Hormone replacement therapy; Z79.82 Long term (current) use of aspirin; Z79.01 Long term (current) use of anticoagulants; Z79.899 Other long term (current) drug therapy; Z88.0 Allergy status to penicillin; Z85.3 Personal history of malignant neoplasm of breast; Z90.49 Acquired absence of other specified parts of digestive tract; Z90.710 Acquired absence of both cervix and uterus; Z96.653 Presence of artificial knee joint, bilateral; Z90.12 Acquired absence of left breast and nipple; Z98.890 Other specified postprocedural states
CPT/HCPCS: 96361; 96365; 99285; 36415; 93005; 80053; 80048; 83735; 84443; 84484 ×2; 85025 ×2; 85610; 85730; 87636; 71046; G0378 ×3

== ENCOUNTER → 2023-10-21 | Outpatient (CLI) | payer MEDICARE ==
--- NOTE | 2023-10-21 09:09 | MM ---
Reason for Exam: Hx of breast cancer, mastectomy. Last mammogram was performed 1 year(s) and 1 month(s) ago. Patient History: Menarche at age 13. First Full-Term at age 22. Left ovary removed at age 53. Right ovary removed at age 53. Hysterectomy at age 53. Postmenopausal. Patient has history of breast feeding. Breast cancer, left, age 48. Breast cancer, left, age 55. 2001, Mastectomy on the Left side. Maternal grandmother had breast cancer at or over age 50. Prior Study Comparison: 08/30/2021 Right MG 3D diag mammo w/cad RT - 2, [facility]. 09/16/2021 Right MG 3D diag mammo w/cad RT - 2, [facility]. 09/24/2022 Right MG 3D diag mammo w/cad RT, [facility]. Tissue Density: Right: There are scattered areas of fibroglandular density. Findings: Analyzed By CAD. No new suspicious masses, calcifications or distortions. Overall Assessment: Benign, BI-RAD 2 Management: Screening Mammogram of the right breast in 1 year. Results were given to the patient verbally at the time of exam. Patient should continue monthly self-breast exams. A clinical breast exam by your physician is recommended on an annual basis. This exam should not preclude additional follow-up of suspicious palpable abnormalities. Note on Elizabeth scores and lifetime risk: 1. A Elizabeth score greater than 3% is considered moderate risk. If this is the case, consider specialist referral to assess eligibility for a risk reducing agent. 2. If overall lifetime risk for the development of breast cancer is 20% or higher, the patient may qualify for future screening with alternating mammogram and breast MRI. Electronically signed and approved by: Daniel Greenfield DO
== END | disposition home or self-care (01) ==
LOC: RADMAMWWP 08:24
PROVIDERS: ATTEND Internal Medicine Hematology & Oncology
DX: C50.919 Malignant neoplasm of unspecified site of unspecified female breast
CPT/HCPCS: 77061; 77065

== ENCOUNTER 2024-01-13 15:25 | Emergency (ER) | payer MEDICARE ==
[2024-01-13 15:51] VITALS: TEMP 98.6
[2024-01-13] MEDS: SODIUM CHLORIDE 0.9% 1,000 ML IV STA (16:29)
[2024-01-13] MEDS: METOPROLOL TARTRATE 5 MG/5 ML VIAL IVP STA (16:33)
--- NOTE | 2024-01-13 16:38 | ED ---
General Adult HPI - General Chief complaint: Chest Pain Stated complaint: afib Time Seen by Provider: 01/13/24 15:55 Source: patient Mode of arrival: ambulatory Limitations: no limitations - History of Present Illness Initial comments: Dictation was produced using [employer] dictation software. please excuse any grammatical, word or spelling errors. Chief Complaint: 73-year-old female with history of A-fib presents chief complaint of A-fib History of Present Illness: Patient 73-year-old female she has history of atrial fibrillation she takes anticoagulation medications along with beta-preethi. States this morning she woke up with some palpitations. States she has been compliant with her medications. Patient denies any other symptoms at this time The ROS documented in this emergency department record has been reviewed and confirmed by me. Those systems with pertinent positive or negative responses have been documented in the HPI. All other systems are other negative and/or noncontributory. - Related Data Home Medications Medication Instructions Recorded Confirmed Calcium Carbonate [Calcium] 2,400 mg PO W/SUPPER 09/08/21 01/13/24 Multivitamins, Thera [Multivitamin 1 tab PO W/SUPPER 09/08/21 01/13/24 (formulary)] Pyridoxine HCl (Vitamin B6) 200 mg PO W/SUPPER 09/08/21 01/13/24 [Vitamin B-6] Turmeric Root Extract [Turmeric] 1,000 mg PO W/SUPPER 09/08/21 01/13/24 Aspirin EC [Ecotrin Low Dose] 81 mg PO W/SUPPER 01/11/23 01/13/24 Cholecalciferol [Vitamin D3 (125 125 mcg PO W/SUPPER 01/11/23 01/13/24 Mcg = 5000 Iu)] Magnesium Oxide [Mag-Ox] 400 mg PO W/SUPPER 01/11/23 01/13/24 Levothyroxine Sodium [Synthroid] 150 mcg PO DAILY 01/13/24 01/13/24 Rosuvastatin Calcium [Crestor] 5 mg PO DAILY 01/13/24 01/13/24 Previous Rx's Medication Instructions Recorded Apixaban [Eliquis] 5 mg PO BID 30 Days #60 tab 09/09/21 Propafenone [Rythmol] 150 mg PO TID #90 tab 07/25/22 Allergies Allergy/AdvReac Type Severity Reaction Status Date / Time Penicillins Allergy Anaphylaxis Verified 01/13/24 16:48 & Hives, Itching Review of Systems ROS Statement: Those systems with pertinent positive or pertinent negative responses have been documented in the HPI. ROS Other: All systems not noted in ROS Statement are negative. Past Medical History Past Medical History: Atrial Fibrillation, Cancer, Hyperlipidemia, Thyroid Disorder Additional Past Medical History / Comment(s): irregular heartbeat, arthritis, anti-phospholipid syndromem, hx breast cancer History of Any Multi-Drug Resistant Organisms: None Reported Past Surgical History: Breast Surgery, Cholecystectomy, Hysterectomy, Orthopedic Surgery, Tonsillectomy Additional Past Surgical History / Comment(s): left mastectomy, kandis knee replacements, RK surgery Past Anesthesia/Blood Transfusion Reactions: Postoperative Nausea & Vomiting (PONV) Past Psychological History: No Psychological Hx Reported Smoking Status: Never smoker Past Alcohol Use History: Occasional Past Drug Use History: None Reported - Past Family History Mother Family Medical History: No Reported History General Exam - General Exam Comments Initial Comments: PHYSICAL EXAM: General Impression: Alert and oriented x3, not in acute distress HEENT: Normocephalic atraumatic, extra-ocular movements intact, pupils equal and reactive to light bilaterally, mucous membranes moist. Cardiovascular: Heart regular rate and rhythm Chest: Able to complete full sentences, no retractions, no tachypnea Abdomen: abdomen soft, non-tender, non-distended, no organomegaly Musculoskeletal: Pulses present and equal in all extremities, no peripheral edema Motor: no focal deficits noted Neurological: CN II-XII grossly intact, no focal motor or sensory deficits noted Skin: Intact with no visualized rashes Psych: Normal affect and mood Limitations: no limitations Course Vital Signs 01/13/24 01/13/24 01/13/24 15:49 16:15 16:29 Temperature 98.6 F Pulse Rate 116 H 123 H 116 H Respiratory 20 19 20 Rate Blood Pressure 112/67 87/54 O2 Sat by Pulse 99 94 L 94 L Oximetry 01/13/24 01/13/24 01/13/24 16:30 16:55 17:00 Temperature Pulse Rate 114 H 97 98 Respiratory 19 18 19 Rate Blood Pressure 138/93 111/80 119/81 O2 Sat by Pulse 95 96 98 Oximetry 01/13/24 01/13/24 01/13/24 17:15 17:30 17:45 Temperature Pulse Rate 97 94 101 H Respiratory 16 16 18 Rate Blood Pressure 119/81 119/81 137/95 O2 Sat by Pulse 98 98 97 Oximetry 01/13/24 01/13/24 18:00 18:15 Temperature Pulse Rate 82 84 Respiratory 16 16 Rate Blood Pressure 137/95 125/85 O2 Sat by Pulse 96 95 Oximetry EKG Findings - EKG Comments: EKG Findings:: My EKG interpretation: Ventricular rate 117, a flutter, QRS 118, QTc 374. No QTC prolongation, no ST or T-wave changes noted. Overall, this EKG is unremarkable Medical Decision Making - Medical Decision Making Was pt. sent in by a medical professional or institution (, PA, BOOKKEEPING MANAGER, urgent care, hospital, or usp...) When possible be specific @ -No Did you speak to anyone other than the patient for history (EMS, parent, family, police, friend...)? What history was obtained from this source @ -No Did you review nursing and triage notes (agree or disagree)? Why? @ -I reviewed and agree with nursing and triage notes Were old charts reviewed (outside hosp., previous admission, EMS record, old EKG, old radiological studies, urgent care reports/EKG's, usp records)? Report findings @ -No old charts were reviewed Differential Diagnosis (chest pain, altered mental status, abdominal pain women, abdominal pain men, vaginal bleeding, musculoskeletal, weakness, fever, dyspne a, syncope, headache, dizziness, GI bleed, back pain, seizure, CVA, palpatations, mental health)? @ - Differential Palpitations: Ventricular arrhythmias, atrial arrhythmias, myocardial infarction, anemia, thyrotoxicosis, electrolyte imbalance, hypokalemia, pulmonary embolism, pulmonary disease, drugs, alcohol, anxiety, stress.... This is not meant to be an all-inclusive list. EKG interpreted by me (3pts min.). @ -See above X-rays interpreted by me (1pt min.). @ -Chest x-ray is unremarkable CT interpreted by me (1pt min.). @ -None done U/S interpreted by me (1pt. min.). @ -None done What testing was considered but not performed or refused? (CT, X-rays, U/S, labs)? Why? @ -None What meds were considered but not given or refused? Why? @ -None Was smoking cessation discussed for >3mins.? @ -No Were there social determinants of health that impacted care today? How? (Homelessness, low income, unemployed, alcoholism, drug addiction, transportation, low edu. Level, literacy, decrease access to med. care, fpc, rehab)? @ -No Was there de-escalation of care discussed even if they declined (Discuss DNR or withdrawal of care, Hospice)? DNR status @ -No What co-morbidities impacted this encounter? (DM, HTN, Smoking, COPD, CAD, Cancer, CVA, ARF, Chemo, Hep., AIDS, mental health diagnosis, sleep apnea, morbid obesity)? @ -None Was patient admitted / discharged? Hospital course, mention meds given and route, prescriptions, significant lab abnormalities, going to OR and other per tinent info. @ -73-year-old female with past medical history of A-fib presents to the ER for A-fib. She is on all the appropriate medications. Vital signs upon arrival shows heart rates in the low 1 teens. Patient given a dose of IV metoprolol with improvement of her heart rate. Labs and imaging is unremarkable. Patient reevaluated at bedside 6:35 PM she like to be discharged states that she feels great. Patient told to follow-up with cardiology. Return precautions discussed Did you discuss the management of the patient with other professionals (professionals i.e. , PA, BOOKKEEPING MANAGER, lab, RT, psych nurse, social sciences research scientist, associate professor of psychology, teacher, combat information center officer, child welfare caseworker)? Give summary @ -No Was critical care preformed (if so, how long)? @ -No Undiagnosed new problem with uncertain prognosis? @ -No Drug Therapy requiring intensive monitoring for toxicity (Heparin, Nitro, Insulin, Cardizem)? @ -No Were any procedures done? @ -No Diagnosis/symptom? Acute, or Chronic, or Acute on Chronic? Uncomplicated (without systemic symptoms) or Complicated (systemic symptoms)? @ -Palpitations Side effects of treatment? @ -No Exacerbation, Progression, or Severe Exacerbation? @ -No Poses a threat to life or bodily function? How? (Chest pain, [place], [place], pneumonia, PE, COPD, DKA, ARF, appy, cholecystitis, CVA, Diverticulitis, Homicidal, Suicidal, threat to staff... and all critical care pts) @ -No - Lab Data Result diagrams: 01/13/24 16:24 01/13/24 16:24 Lab Results 01/13/24 01/13/24 01/13/24 Range/Units 16:24 16:24 16:24 WBC 7.4 (3.8-10.6) k/uL RBC 5.03 (3.80-5.40) m/uL Hgb 15.3 (11.4-16.0) gm/dL Hct 46.1 H (34.0-46.0) % MCV 91.8 (80.0-100.0) fL MCH 30.5 (25.0-35.0) pg MCHC 33.2 (31.0-37.0) g/dL RDW 13.0 (11.5-15.5) % Plt Count 305 (150-450) k/uL MPV 7.9 Neutrophils % 73 % Lymphocytes % 19 % Monocytes % 5 % Eosinophils % 2 % Basophils % 0 % Neutrophils # 5.4 (1.3-7.7) k/uL Lymphocytes # 1.4 (1.0-4.8) k/uL Monocytes # 0.3 (0-1.0) k/uL Eosinophils # 0.1 (0-0.7) k/uL Basophils # 0.0 (0-0.2) k/uL PT 10.9 (10.0-12.5) sec INR 1.0 (<1.2) APTT 34.2 H (22.0-30.0) sec Sodium 138 (137-145) mmol/L Potassium 4.3 (3.5-5.1) mmol/L Chloride 107 (98-107) mmol/L Carbon Dioxide 22 (22-30) mmol/L Anion Gap 9 mmol/L BUN 18 H (7-17) mg/dL Creatinine 1.06 H (0.52-1.04) mg/dL Est GFR (CKD-EPI)AfAm 60 (>60 ml/min/1.73 sqM) Est GFR (CKD-EPI)NonAf 52 (>60 ml/min/1.73 sqM) Glucose 116 H (74-99) mg/dL Calcium 9.7 (8.4-10.2) mg/dL Magnesium 2.2 (1.6-2.3) mg/dL Total Bilirubin 0.8 (0.2-1.3) mg/dL AST 28 (14-36) U/L ALT 23 (4-34) U/L Alkaline Phosphatase 58 (38-126) U/L Troponin I (0.000-0.034) ng/mL Total Protein 7.1 (6.3-8.2) g/dL Albumin 4.7 (3.5-5.0) g/dL 01/13/24 Range/Units 16:24 WBC (3.8-10.6) k/uL RBC (3.80-5.40) m/uL Hgb (11.4-16.0) gm/dL Hct (34.0-46.0) % MCV (80.0-100.0) fL MCH (25.0-35.0) pg MCHC (31.0-37.0) g/dL RDW (11.5-15.5) % Plt Count (150-450) k/uL MPV Neutrophils % % Lymphocytes % % Monocytes % % Eosinophils % % Basophils % % Neutrophils # (1.3-7.7) k/uL Lymphocytes # (1.0-4.8) k/uL Monocytes # (0-1.0) k/uL Eosinophils # (0-0.7) k/uL Basophils # (0-0.2) k/uL PT (10.0-12.5) sec INR (<1.2) APTT (22.0-30.0) sec Sodium (137-145) mmol/L Potassium (3.5-5.1) mmol/L Chloride (98-107) mmol/L Carbon Dioxide (22-30) mmol/L Anion Gap mmol/L BUN (7-17) mg/dL Creatinine (0.52-1.04) mg/dL Est GFR (CKD-EPI)AfAm (>60 ml/min/1.73 sqM) Est GFR (CKD-EPI)NonAf (>60 ml/min/1.73 sqM) Glucose (74-99) mg/dL Calcium (8.4-10.2) mg/dL Magnesium (1.6-2.3) mg/dL Total Bilirubin (0.2-1.3) mg/dL AST (14-36) U/L ALT (4-34) U/L Alkaline Phosphatase (38-126) U/L Troponin I <0.012 (0.000-0.034) ng/mL Total Protein (6.3-8.2) g/dL Albumin (3.5-5.0) g/dL Disposition Clinical Impression: Palpitations Disposition: HOME SELF-CARE Condition: Good Instructions (If sedation given, give patient instructions): A-fib (Atrial Fibrillation) (ED) Is patient prescribed a controlled substance at d/c from ED?: No Referrals: Yenni Bains MD [Primary Care Provider] - 1-2 days Time of Disposition: 18:35
[2024-01-13 16:39] LABS: Basophils % (A) 0 %; Eosinophils # (A) 0.1 k/uL (0-0.7); Eosinophils % (A) 2 %; HCT 46.1 % (34.0-46.0); HGB 15.3 gm/dL (11.4-16.0); Lymphocytes # (A) 1.4 k/uL (1.0-4.8); Lymphocytes % (A) 19 %; MCH 30.5 pg (25.0-35.0); MCHC 33.2 g/dL (31.0-37.0); MCV 91.8 fL (80.0-100.0); Mean Platelet Volume 7.9; Monocytes # (A) 0.3 k/uL (0-1.0); Monocytes % (A) 5 %; Neutrophils # (A) 5.4 k/uL (1.3-7.7); Neutrophils % (A) 73 %; Platelet Count 305 k/uL (150-450); RBC 5.03 m/uL (3.80-5.40); WBC 7.4 k/uL (3.8-10.6)
[2024-01-13 16:49] LABS: ALT 23 U/L (4-34); AST 28 U/L (14-36); African American GFR (CKD) 60 (>60 ml/min/1.73 sqM); Albumin 4.7 g/dL (3.5-5.0); Alkaline Phosphatase 58 U/L (38-126); Anion Gap 9 mmol/L; Blood Urea Nitrogen 18 mg/dL (7-17); Calcium 9.7 mg/dL (8.4-10.2); Carbon Dioxide 22 mmol/L (22-30); Chloride 107 mmol/L (98-107); Glucose 116 mg/dL (74-99); Magnesium 2.2 mg/dL (1.6-2.3); Non-African American GFR(CKD) 52 (>60 ml/min/1.73 sqM); Potassium 4.3 mmol/L (3.5-5.1); Sodium 138 mmol/L (137-145); Total Bilirubin 0.8 mg/dL (0.2-1.3); Total Protein 7.1 g/dL (6.3-8.2)
[2024-01-13 16:59] LABS: Partial Thromboplastin Time 34.2 sec (22.0-30.0); Prothrombin Time 10.9 sec (10.0-12.5)
--- NOTE | 2024-01-13 17:56 | XR ---
EXAMINATION TYPE: XR chest 2V DATE OF EXAM: 01/13/2024 5:24 PM COMPARISON: Chest radiographs from 01/11/2023 CLINICAL INDICATION: Female, 73 years old with history of Chest Pain; TECHNIQUE: XR chest 2V Frontal and lateral views of the chest. FINDINGS: Lungs/Pleura: There is no evidence of pleural effusion, focal consolidation, or pneumothorax. Pulmonary vascularity: Unremarkable. Heart/mediastinum: Cardiomediastinal silhouette is unremarkable. Musculoskeletal: No acute osseous pathology. IMPRESSION: No acute cardiopulmonary disease/process. [facility], , 01/13/2024 5:53 PM
[2024-01-13 18:47] VITALS: BP 138/92; PULSE 87; RESP 12
== END 2024-01-13 18:46 | disposition home or self-care (01) ==
LOC: EC 15:25
DX: R00.2 Palpitations (principal); Z88.0 Allergy status to penicillin
CPT/HCPCS: 36415; 71046; 80053; 83735; 84484; 85025; 85610; 85730; 93005; 96361; 96374; 99285